=== PATIENT | male | born 1965 | race Caucasian/White ===

== ENCOUNTER → 2020-12-06 | Outpatient (CLI) | payer BC ==
[~2020-12-06] MED LIST: METHACHOLINE KIT (J7674) INH ONE
--- NOTE | 2020-12-06 10:06 | PFTRPT ---
Height: 71.00 Inches Weight: 298.00 Lbs BSA: 2.50 Diagnosis: R06.00 DATE: 12/06/2020 ORDERED BY: EMRE Byrne. QUALITY: Study of excellent technical quality. PROCEDURE: Under protocol, methacholine was administered. At a dose of 2.5 mg or 13.875 CDUs, a 23% decline in the FEV1 was noted. PC of 1.57 is significant. Flow rates did return to baseline post bronchodilator administration. IMPRESSION: Positive methacholine challenge study. MTDD
== END ==
LOC: M CARPUL 08:57
PROVIDERS: ATTEND Physician Assistant
DX: R06.00 Dyspnea, unspecified (principal)
CPT/HCPCS: 94070; J7674